=== PATIENT | female | born 1970 | race Hispanic/Latino ===

== ENCOUNTER 2017-01-14 12:43 | Emergency (ER) | payer SELFPAY ==
[2017-01-14] MEDS ORDERED: hydrOXYzine 25 MG TAB ONE (12:58)
[2017-01-14] MEDS ORDERED: methylPREDNISolone Sod Succ/PF 125 MG/2 ML VIAL ONE (12:58)
== END 2017-01-14 13:02 | disposition home or self-care (01) ==
LOC: BURERS 12:43
DX: R21 Rash and other nonspecific skin eruption (principal); E78.5 Hyperlipidemia, unspecified; M19.90 Unspecified osteoarthritis, unspecified site; G43.909 Migraine, unspecified, not intractable, without status migrainosus; J45.909 Unspecified asthma, uncomplicated
CPT/HCPCS: 96372; J2930

== ENCOUNTER 2022-04-11 11:12 | Outpatient (CLI) | payer OTHER | END 2022-04-11 11:13 | disposition home or self-care (01) | LOC: BURRAD 11:12 | PROVIDERS: ATTEND Physician Assistant | DX: M25.562 Pain in left knee (principal) ==